=== PATIENT | male | born 1955 | race Caucasian/White ===

== ENCOUNTER → 2017-02-23 | Outpatient (CLI) | payer OTHER ==
[~2017-02-23] MED LIST: OMNIPAQUE 350 MG/ML, 100ML BOTTLE ONE
== END | disposition home or self-care (01) ==
LOC: RAD 06:48
PROVIDERS: ATTEND Internal Medicine Gastroenterology
DX: K38.1 Appendicular concretions (principal); K76.89 Other specified diseases of liver; K56.69 Other intestinal obstruction
CPT/HCPCS: 74177; Q9967